=== PATIENT | female | born 1975 | race African-American/Black ===

== ENCOUNTER 2016-11-08 05:40 | Emergency (ER) | payer MEDICAID ==
[~2016-11-08] VITALS: Ht 157.5 cm; Wt 70.0 kg
[2016-11-08] MEDS ORDERED: IBUPROFEN 600MG TABLET PO ONE (09:00)
[2016-11-08 09:15] VITALS: BP 155/86
== END 2016-11-08 10:08 | disposition home or self-care (01) ==
LOC: ER 05:41
DX: S43.101A Unspecified dislocation of right acromioclavicular joint, initial encounter (principal); M25.531 Pain in right wrist; M25.521 Pain in right elbow; M25.561 Pain in right knee; J45.909 Unspecified asthma, uncomplicated; F17.200 Nicotine dependence, unspecified, uncomplicated; W19.XXXA Unspecified fall, initial encounter; Y93.02 Activity, running; Y92.89 Other specified places as the place of occurrence of the external cause; Y99.8 Other external cause status
CPT/HCPCS: 73030; 73080; 73110; 73562; 99284; A4565

== ENCOUNTER 2020-05-03 01:09 | Emergency (ER) | payer MEDICAID ==
[~2020-05-03] VITALS: Ht 157.5 cm; Wt 60.0 kg
[2020-05-03] MEDS ORDERED: ALBUTEROL (0.5%) 2.5MG/0.5ML NEB HHN ONE (01:45)
[2020-05-03 01:57] LABS: BASOPHILS % 3.6 % (0.0-2.0); EOSINOPHILS % 2.9 % (0.0-5.0); HEMATOCRIT. 27.9 % (36.0-48.0); HEMOGLOBIN. 8.2 g/dL (12.0-16.0); LYMPHOCYTES % 14.7 % (20.0-50.0); MEAN CORPUSCULAR HEMOGLOBIN 20.6 pg (28.0-32.0); MEAN CORPUSCULAR VOLUME 70.1 fL (81.0-99.0); MONOCYTES % 10.7 % (2.0-8.0); NEUTROPHILS % 68.1 % (40.0-76.0); PLATELET 301 x1000/uL (130-400); RED BLOOD CELL COUNT 3.98 mill/uL (4.2-5.4); RED CELL DISTRIBUTION WIDTH 20.7 % (11.6-14.6)
[2020-05-03 02:03] LABS: CHLORIDE 110 mEq/L (98-107)
[2020-05-03 02:06] LABS: HCG SCREEN NEGATIVE
[2020-05-03 02:45] LABS: CLARITY URINE CLEAR (CLEAR); COLOR URINE YELLOW (YELLOW); KETONES URINE NEGATIVE (NEGATIVE); LEUKOCYTE ESTERASE URINE NEGATIVE (NEGATIVE); NITRITE URINE NEGATIVE (NEGATIVE); OCCULT BLOOD URINE NEGATIVE (NEGATIVE); PH URINE 6.5 (4.5-8.0); PROTEIN URINE NEGATIVE (NEGATIVE); SPECIFIC GRAVITY URINE 1.006 (1.005-1.030)
[2020-05-03] MEDS ORDERED: ASPIRIN 325MG EC TABLET PO ONE (02:45)
[2020-05-03] MEDS ORDERED: POTASSIUM BICARB/CIT ACID 25 MEQ TABLET.EFF PO ONE (03:30)
[2020-05-03 05:30] VITALS: BP 125/78
== END 2020-05-03 05:10 | disposition short-term general hospital (02) ==
LOC: ER 01:09
DX: R07.89 Other chest pain (principal); R77.8 Other specified abnormalities of plasma proteins; E87.6 Hypokalemia; F14.10 Cocaine abuse, uncomplicated; J45.909 Unspecified asthma, uncomplicated; I10 Essential (primary) hypertension; F17.200 Nicotine dependence, unspecified, uncomplicated; R06.02 Shortness of breath; Z98.890 Other specified postprocedural states; Z20.822 Contact with and (suspected) exposure to COVID-19
CPT/HCPCS: 36415; 71045; 80048; 81003; 84484; 84703; 85025; 87426; 93005; 94640; 99285; Z7610

== ENCOUNTER 2022-10-07 11:06 | Emergency (ER) | payer MEDICAID ==
[~2022-10-07] VITALS: Ht 165.1 cm; Wt 60.0 kg
[2022-10-07 11:09] VITALS: BP 132/86; PULSE 72; RESP 16; O2SAT 99
[2022-10-07 13:45] VITALS: TEMP 98.5
[2022-10-07] MEDS ORDERED: IBUP-2029 MT (13:45)
[2022-10-07] MEDS ORDERED: ACETAMINOPHEN 325MG TABLET PO ONE (13:45)
== END 2022-10-07 15:17 | disposition home or self-care (01) ==
LOC: ER 11:06
DX: S80.11XA Contusion of right lower leg, initial encounter (principal); M25.531 Pain in right wrist; M25.511 Pain in right shoulder; J45.909 Unspecified asthma, uncomplicated; F14.10 Cocaine abuse, uncomplicated; I10 Essential (primary) hypertension; V49.59XA Passenger injured in collision with other motor vehicles in traffic accident, initial encounter; Y93.89 Activity, other specified; Y92.89 Other specified places as the place of occurrence of the external cause; Y99.8 Other external cause status
CPT/HCPCS: 73030; 73070; 73100; 73560; 99284